=== PATIENT | male | born 1990 | race Caucasian/White ===

== ENCOUNTER 2016-04-11 13:03 | Emergency (ER) | payer OTHER ==
[2016-04-11 14:29] VITALS: RESP 16; O2SAT 97
[2016-04-11] MEDS ORDERED: ONDANSETRON DISINTEGRATING 4 MG TAB PO ONE (15:35)
--- NOTE | 2016-04-11 15:38 | UCPHY ---
H & P Time Seen by Provider: 04/11/16 15:17 Patient Type: Established HPI/ROS: This patient complains of vomiting and diarrhea. He explains that he developed diarrhea at 3:00 p.m. yesterday-loose watery few hours after eating a burger that he was suspects may have been bad at a local restaurant. He had frequent diarrhea yesterday that is nearly resolved today with 1 episode this morning when episode shortly prior to arrival. Also had nausea and vomiting yesterday most recent episode of vomiting was this morning at 5:00 a.m. but he has ongoing nausea and decreased appetite due to the symptoms. ROS: No fevers or chills. HEENT: No complaints pulmonary: No complaints cardiovascular: No significant lightheadedness. GI: Mild to moderate lower belly crampy discomfort left quadrant more than right lower quadrant. No blood in his emesis or stool. No urinary symptoms. No skin rash. 10 point ROS is otherwise negative. Past Medical/Surgical History: Otherwise healthy Smoking Status: Never smoked Physical Exam: General Appearance: Pleasant young male Alert, no distress. Eyes: Pupils equal and round no pallor or injection. ENT, Mouth: Mucous membranes moist. Respiratory: There are no retractions, lungs are clear to auscultation. Cardiovascular: Regular rate and rhythm. Gastrointestinal: Hyperactive bowel sounds. Patient has minimal lower belly tenderness left lower quadrant more than right with no guarding or rebound. Back: No CVA tenderness Neurological: Alert with no focal deficits Skin: Warm and dry, no rashes. Musculoskeletal: Neck is supple nontender. Extremities are symmetrical, full range of motion. Psychiatric: Mood and affect are normal DIFFERENTIAL DIAGNOSIS: After history and physical exam differential diagnosis was considered for viral gastroenteritis, food poisoning, food intolerance Constitutional: Initial Vital Signs Temperature (C) 36.7 C 04/11/16 14:23 Heart Rate 80 04/11/16 14:23 Respiratory Rate 16 04/11/16 14:23 Blood Pressure 131/86 H 04/11/16 14:23 O2 Sat (%) 97 04/11/16 14:23 O2 Delivery Mode Room Air Allergies/Adverse Reactions: No Known Allergies Allergy (Verified 04/11/16 14:22) Home Medications: Medication Instructions Recorded Ondansetron Odt [Zofran Odt] 4 - 8 mg PO Q4PRN PRN #4 tab 04/11/16 MDM/Departure - [facility] ED Course/Re-evaluation: Zofran 8 ODT Patient appears very well here in his symptoms or spontaneously improving without intervention. He tolerated p.o. intake after Zofran. 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 - Depart Disposition: Home, Routine, Self-Care Clinical Impression: Gastroenteritis Condition: Good Instructions: Gastroenteritis (ED) Additional Instructions: Diagnosis: Gastroenteritis Your symptoms are either from a viral vomiting/diarrheal illness-most likely versus food poisoning from the Burger-less likely Plan: Plenty of fluids. Light diet to feel improved Zofran if needed for nausea vomiting Imodium if needed for diarrhea No work until 24 hours after resolution of her symptoms. Return for any significant worsening despite the treatment plan. Stand Alone Forms: Work Excuse Prescriptions: Ondansetron Odt [Zofran Odt] 4 - 8 mg PO Q4PRN PRN #4 tab PRN Reason: Vomiting Referrals: Hailey Winslow MD [Primary Care Provider] - As per Instructions - PQRS PQRS Measurement: NA
[2016-04-11 16:18] VITALS: BP 107/74; PULSE 68; TEMP 97
== END 2016-04-11 16:19 | disposition home or self-care (01) ==
LOC: CED 13:03
DX: K52.9 Noninfective gastroenteritis and colitis, unspecified (principal)
CPT/HCPCS: 99214-PO; G0463-PO

== ENCOUNTER 2016-05-15 16:49 | Emergency (ER) | payer OTHER ==
[2016-05-15 16:56] VITALS: BP 138/85; PULSE 75; RESP 16; TEMP 98.2; O2SAT 96
--- NOTE | 2016-05-15 17:35 | UCPHY ---
H & P Patient Type: Established Chief Complaint Nursing Narrative: C/o sinus congestion and pressure x 10 days. States patient had flu like symptoms (high fever, body aches, and cough and chest congestion which is resolved). Time Seen by Provider: 05/15/16 17:27 HPI/ROS: CHIEF COMPLAINT: Sinusitis HISTORY OF PRESENT ILLNESS: The patient is a 25-year-old man who comes to the Urgent Care complaining of sinus congestion and pressure. He states that he had a flu-like illness 10 days ago with a high fevers up to 103, body aches, sore throat and runny nose. All the symptoms have resolved except for the sinus congestion. He states that he has green thick mucus. No headache or neck pain. No longer having fevers. He classifies symptoms is moderate. REVIEW OF SYSTEMS: Constitutional: denies: chills, fever, recent illness, recent injury EENTM: See HPI Respiratory: denies: cough, shortness of breath Cardiac: denies: chest pain, irregular heart rate, lightheadedness, palpitations Gastrointestinal/Abdominal: denies: abdominal pain, diarrhea, nausea, vomiting, blood streaked stools Genitourinary: denies: dysuria, frequency, hematuria, pain Musculoskeletal: denies: joint pain, muscle pain Skin: denies: lesions, rash, jaundice, bruising Neurological: denies: headache, numbness, paresthesia, tingling, dizziness, weakness Hematologic/Lymphatic: denies: blood clots, easy bleeding, easy bruising Immunologic/allergic: denies: HIV/AIDS, transplant EXAM: GENERAL: Well-appearing, well-nourished and in no acute distress. HEAD: Atraumatic, normocephalic. EYES: Pupils equal round and reactive to light, extraocular movements intact, sclera anicteric, conjunctiva are normal. ENT: TMs normal, nares patent, oropharynx clear without exudates. Moist mucous membranes. Sinus tenderness over maxilla to palpation NECK: Normal range of motion, supple without lymphadenopathy or JVD. LUNGS: Breath sounds clear to auscultation bilaterally and equal. No wheezes rales or rhonchi. HEART: Regular rate and rhythm without murmurs, rubs or gallops. ABDOMEN: Soft, nontender, normoactive bowel sounds. No guarding, no rebound. No masses appreciated. BACK: No CVA tenderness, no spinal tenderness, step-offs or deformities EXTREMITIES: Normal range of motion, no pitting or edema. No clubbing or cyanosis. NEUROLOGICAL: Cranial nerves II through XII grossly intact. Normal speech, normal gait. 5/5 strength, normal movement in all extremities, normal sensation PSYCH: Normal mood, normal affect. SKIN: Warm, dry, normal turgor, no visible rashes or lesions. Source: Patient - Personal History Current Tetanus Diphtheria and Acellular Pertussis (TDAP): Yes Tetanus Vaccine Date: within 10 years - Medical/Surgical History Hx Asthma: No Hx Chronic Respiratory Disease: No Hx Diabetes: No Hx Cardiac Disease: No Hx Renal Disease: No Hx Cirrhosis: No Hx Alcoholism: No Hx HIV/AIDS: No Hx Splenectomy or Spleen Trauma: No Other PMH: Med hx-none. Surg-nasal septum 01/2016 - Family History Significant Family History: No pertinent family hx - Social History Smoking Status: Never smoked Alcohol Use: Sober Drug Use: None Constitutional: Initial Vital Signs Temperature (C) 36.8 C 05/15/16 16:54 Heart Rate 75 05/15/16 16:54 Respiratory Rate 16 05/15/16 16:54 Blood Pressure 138/85 H 05/15/16 16:54 O2 Sat (%) 96 05/15/16 16:54 O2 Delivery Mode Room Air Allergies/Adverse Reactions: No Known Allergies Allergy (Verified 05/15/16 16:54) Home Medications: Medication Instructions Recorded AZITHROMYCIN [Z-PACK] 250 mg PO DAILY #6 tab 05/15/16 Medical Decision Making ED Course/Re-evaluation: Patient has sinus tenderness and symptoms consistent with sinusitis. I will start him on azithromycin. He understands and agrees with this plan. He declines further workup or testing at this time. We also discussed decongestants and pain medications. Differential Diagnosis: Partial list of the Differential diagnosis considered include but were not limited to; sinusitis, pharyngitis, bronchitis, influenza and although unlikely based on the history and physical exam, I also considered pneumonia, meningitis. I discussed these differential diagnoses and the plan with the patient as well as the usual and expected course. The patient understands that the diagnosis is provisional and that in medicine we are not always correct and that further workup is often warranted. Usual and customary warnings were given. All of the patient's questions were answered. The patient was instructed to return to the emergency department should the symptoms at all worsen or return, otherwise to followup with the physician as we discussed. Departure - Departure Disposition: Home, Routine, Self-Care Clinical Impression: Sinusitis Qualifiers: Sinusitis location: maxillary Chronicity: acute Recurrence: non-recurrent Qualified Code(s): J01.00 - Acute maxillary sinusitis, unspecified Condition: Fair Instructions: Sinusitis (ED) Referrals: Hailey Winslow MD [Primary Care Provider] - As per Instructions Prescriptions: AZITHROMYCIN [Z-PACK] 250 mg PO DAILY #6 tab - PQRS PQRS Measurement: Not applicable
== END 2016-05-15 17:43 | disposition home or self-care (01) ==
LOC: CED 16:49
DX: J01.00 Acute maxillary sinusitis, unspecified (principal)
CPT/HCPCS: G0463-PO

== ENCOUNTER 2016-07-09 13:37 | Emergency (ER) | payer OTHER ==
[2016-07-09 13:50] VITALS: RESP 16; TEMP 97.7
--- NOTE | 2016-07-09 14:32 | UCPHY ---
H & P Time Seen by Provider: 07/09/16 14:21 Patient Type: Established HPI/ROS: This patient presents with diarrhea since this morning. He has had 5 episodes of loose watery stool. He has associated intermittent abdominal cramping that is moderate intensity at its worst. He notes no exacerbating factors and has no other associated symptoms. ROS: No fevers or chills. No other constitutional symptoms. HEENT: He does have coryza over the past few days but no other URI symptoms or complaints. Pulmonary: No complaints cardiovascular: No lightheadedness or palpitations. GI: No bloody stools. No nausea or vomiting. : No symptoms. Integumentary : No skin rash. 10 point ROS is otherwise negative. Past Medical/Surgical History: Otherwise healthy Social History: No recent foreign travel or suspect food. Smoking Status: Never smoked Physical Exam: General Appearance: Alert, no distress. Eyes: Pupils equal and round no pallor or injection. ENT, Mouth: Mucous membranes moist. Respiratory: There are no retractions, lungs are clear to auscultation. Cardiovascular: Regular rate and rhythm. Gastrointestinal: Hyperactive bowel sounds, soft, minimal periumbilical tenderness with no guarding or rebound. No organomegaly. Neurological: Alert with no focal deficits. Skin: Warm and dry, no rashes. Musculoskeletal: Neck is supple nontender. Extremities are symmetrical, full range of motion. Psychiatric: Mood and affect normal DIFFERENTIAL DIAGNOSIS: After history and physical exam differential diagnosis was considered for food intolerance, viral gastroenteritis, irritable bowel Constitutional: Initial Vital Signs Temperature (C) 36.5 C 07/09/16 13:43 Heart Rate 80 07/09/16 13:43 Respiratory Rate 16 07/09/16 13:43 Blood Pressure 117/77 07/09/16 13:43 O2 Sat (%) 96 07/09/16 13:43 O2 Delivery Mode Room Air Allergies/Adverse Reactions: No Known Allergies Allergy (Verified 07/09/16 13:50) Home Medications: Medication Instructions Recorded Ondansetron Odt [Zofran Odt] 4 - 8 mg PO Q4PRN PRN #4 tab 07/09/16 MDM/Departure - MDM ED Course/Re-evaluation: Discussion: This patient appears entirely well clinically. He is tolerating good p.o. intake. I counseled him regarding viral gastroenteritis. Find no indication to pursue a workup on this patient given his well clinical appearance and classic history and findings. - Depart Disposition: Home, Routine, Self-Care Clinical Impression: Diarrhea Qualifiers: Diarrhea type: unspecified type Qualified Code(s): R19.7 - Diarrhea, unspecified Condition: Good Instructions: Acute Diarrhea (ED) Additional Instructions: Diagnosis: Diarrhea Plan: Light diet to feel improved Drink plenty of fluids Zofran if he developed nausea or vomiting Imodium for the diarrhea as needed He of abdominal cramping prevents sleep, try 50 mg of Benadryl at bedtime Typically this illness resolves over the course of 1-5 days. Return for any significant worsening despite treatment plan Stand Alone Forms: Work Excuse Prescriptions: Ondansetron Odt [Zofran Odt] 4 - 8 mg PO Q4PRN PRN #4 tab PRN Reason: Vomiting Referrals: BANG,UNKNOWN [Other] - As per Instructions - PQRS PQRS Measurement: NA
[2016-07-09 14:50] VITALS: BP 138/84; PULSE 75; O2SAT 76
== END 2016-07-09 14:40 | disposition home or self-care (01) ==
LOC: CED 13:37
DX: R19.7 Diarrhea, unspecified (principal)
CPT/HCPCS: 99214-PO; G0463-PO

== ENCOUNTER 2016-12-11 14:51 | Emergency (ER) | payer OTHER ==
[2016-12-11 15:00] VITALS: RESP 18; TEMP 97.9
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
[2016-12-11] MEDS ORDERED: IPRATROPIUM/ALBUTEROL 3 ML DEYVIAL IH ONE (15:43)
[2016-12-11] MEDS ORDERED: IPRATROPIUM/ALBUTEROL 3 ML DEYVIAL ONE (15:44)
[2016-12-11 16:16] VITALS: BP 135/80; PULSE 86; O2SAT 96
== END 2016-12-11 16:15 | disposition home or self-care (01) ==
LOC: CED 14:51
DX: J70.5 Respiratory conditions due to smoke inhalation (principal)
CPT/HCPCS: 71010-PO